=== PATIENT | female | born 1970 | race Caucasian/White ===

== ENCOUNTER 2021-12-15 17:53 | Emergency (ER) | payer OTHER ==
[2021-12-15] MEDS ORDERED: KEFLEX250 MG PO (20:06)
== END 2021-12-15 20:30 | disposition home or self-care (01) ==
LOC: FER 17:53
DX: S71.112A Laceration without foreign body, left thigh, initial encounter (principal); F17.210 Nicotine dependence, cigarettes, uncomplicated; W26.8XXA Contact with other sharp object(s), not elsewhere classified, initial encounter
CPT/HCPCS: 73552